=== PATIENT | female | born 1975 | race Caucasian/White ===

== ENCOUNTER 2018-01-29 19:08 | Emergency (ER) | payer OTHER ==
[2018-01-29] MEDS: HYDROCODONE/APAP (10/325) TAB PO (21:34)
== END 2018-01-29 21:58 | disposition home or self-care (01) ==
LOC: FTE 19:08
DX: M54.41 Lumbago with sciatica, right side (principal)
CPT/HCPCS: 99283; Z7610

== ENCOUNTER 2018-10-12 12:25 | Emergency (ER) | payer OTHER | END 2018-10-12 15:43 | disposition home or self-care (01) | LOC: FTE 12:25 | DX: R07.81 Pleurodynia (principal) | CPT/HCPCS: 71100; 99283-25 ==